=== PATIENT | male | born 1950 | race Caucasian/White ===

== ENCOUNTER 2021-06-12 08:09 | Day surgery (SDC) | payer MEDICARE, SELFPAY ==
[2021-05-17 12:44] VITALS: BMI 33.7
[2021-05-17 15:54] VITALS: BMI 33.7
--- NOTE | 2021-06-11 10:34 | P.CONAN_ITS ---
Documented by User: Bev De Oliveira NP 06/11/21 10:35 HPI - Anesthesia Eval Consult details Narrative: 70yo M for Colonoscopy Eliquis for afib PMFSH Past Medical History Medical History (Updated 05/17/21 @ 15:50 by Lucie Malin, LUIS ENRIQUE) Anxiety Arthritis Elevated cholesterol History of prostate cancer HTN (hypertension) Low back pain PAF (paroxysmal atrial fibrillation) Surgical History Surgical History Hx of colonoscopy Social History Social History Are you a primary manager of care to a significant other at home: No Do you presently have visiting nurse or other home services: No Patient Tobacco Use Status: Former Tobacco user Quit Date: Tobacco use type: Cigarette Use of substances other than those prescribed or required for medical reasons: No Have you been hit, kicked, punched, or otherwise hurt by someone within the past year? If so, by whom?: No Are you DNR?: No Advance Directives: No Advance Directives Information Provided: Yes Advance Directives on File: No Meds Allergies Allergy/AdvReac Type Severity Reaction Status Date / Time ERVIN Inhibitors Allergy Angioedema Verified 05/17/21 15:53 Home Medications Medication Instructions Recorded Confirmed Last Taken Type alprazolam 0.5 mg 0.5 mg PO BID 05/17/21 05/17/21 Unknown History tablet apixaban 5 mg 5 mg PO BID 05/17/21 05/17/21 06/08/21 History tablet (Eliquis) cholecalciferol 50 mcg PO DAILY 05/17/21 05/17/21 Unknown History (vitamin D3) 50 mcg (2,000 unit) capsule (Vitamin D3) fenofibrate 145 mg PO DAILY 05/17/21 05/17/21 Unknown History nanocrystallized 145 mg tablet (Tricor) fluticasone 1 spray 05/17/21 05/17/21 Unknown History propionate 50 INTRANASAL DAILY mcg/actuation nasal spray,suspension hydrochlorothiazi 12.5 mg PO DAILY 05/17/21 05/17/21 Unknown History de 12.5 mg capsule liraglutide 3 mg SUBCUT 05/17/21 05/17/21 Unknown History (weight loss) 3 DAILY mg/0.5 mL (18 mg/3 mL) subcut pen injector (Saxenda) losartan 50 mg 50 mg PO DAILY 05/17/21 05/17/21 Unknown History tablet omega-3 fatty 1,000 mg PO 05/17/21 05/17/21 Unknown History acids DAILY oxazepam 10 mg 10 mg PO TID PRN 05/17/21 05/17/21 Unknown History capsule sotalol 80 mg 80 mg PO DAILY 05/17/21 05/17/21 Unknown History tablet vitamins cap PO 05/17/21 Unknown History A,C,M-pyra-uiutjq 14,320 unit-226 mg-200 unit capsule (PreserVision AREDS) Exam Exam Date and Time: June 11, 2021 1034 Height,Weight and Vital Signs: Height 5 ft 10 in Weight 106.594 kg Assessment and Plan Assessment Anesthesia Assessment: Chart Reviewed Documented by User: Griselda August MD 06/12/21 09:06 [facility] Past Medical History Medical History (Updated 05/17/21 @ 15:50 by Lucie Malin RN) Anxiety Arthritis Elevated cholesterol History of prostate cancer HTN (hypertension) Low back pain PAF (paroxysmal atrial fibrillation) Functional capacity: independent ambulation Family History Family history of problems with anesthesia: No Surgical History Surgical History Hx of colonoscopy History of Problems with Anesthesia: No Social History Social History Are you a primary manager of care to a significant other at home: No Do you presently have visiting nurse or other home services: No Patient Tobacco Use Status: Former Tobacco user Quit Date: Tobacco use type: Cigarette Use of substances other than those prescribed or required for medical reasons: No Have you been hit, kicked, punched, or otherwise hurt by someone within the past year? If so, by whom?: No Are you DNR?: No Advance Directives: No Advance Directives Information Provided: Yes Advance Directives on File: No Meds Allergies Allergy/AdvReac Type Severity Reaction Status Date / Time ERVIN Inhibitors Allergy Angioedema Verified 05/17/21 15:53 Home Medications Medication Instructions Recorded Confirmed Last Taken Type alprazolam 0.5 mg 0.5 mg PO BID 05/17/21 05/17/21 Unknown History tablet apixaban 5 mg 5 mg PO BID 05/17/21 05/17/21 06/08/21 History tablet (Eliquis) cholecalciferol 50 mcg PO DAILY 05/17/21 05/17/21 Unknown History (vitamin D3) 50 mcg (2,000 unit) capsule (Vitamin D3) fenofibrate 145 mg PO DAILY 05/17/21 05/17/21 Unknown History nanocrystallized 145 mg tablet (Tricor) fluticasone 1 spray 05/17/21 05/17/21 Unknown History propionate 50 INTRANASAL DAILY mcg/actuation nasal spray,suspension hydrochlorothiazi 12.5 mg PO DAILY 05/17/21 05/17/21 Unknown History de 12.5 mg capsule liraglutide 3 mg SUBCUT 05/17/21 05/17/21 Unknown History (weight loss) 3 DAILY mg/0.5 mL (18 mg/3 mL) subcut pen injector (Saxenda) losartan 50 mg 50 mg PO DAILY 05/17/21 05/17/21 Unknown History tablet omega-3 fatty 1,000 mg PO 05/17/21 05/17/21 Unknown History acids DAILY oxazepam 10 mg 10 mg PO TID PRN 05/17/21 05/17/21 Unknown History capsule sotalol 80 mg 80 mg PO DAILY 05/17/21 05/17/21 Unknown History tablet vitamins cap PO 05/17/21 Unknown History A,C,P-pzhx-unnmux 14,320 unit-226 mg-200 unit capsule (PreserVision AREDS) Exam Airway Mallampati Class: III TM Dist: >3cm Denture: Upper Heart: RRR Lungs: CTA Assessment and Plan Final Anesthetic Review Family History of Problems with Anesthesia: No History of Problems with Anesthesia: No NPO: Yes ASA Class: II Final Preanesthetic Review: No Changes in Pt Med Stat, Meds/Allgs Chart Reviewed, Consent Obtained/Reviewed and Anes Risks/Benef Reviewed Patient Risk: Low Procedure Risk: Low Anesthetic Plan Anesthetic Plan: MAC: Disposition: Standard PACU
--- NOTE | 2021-06-11 10:34 | HO.ANESPROP2 ---
Documented by User: Bev De Oliveira NP 06/11/21 10:35 HPI - Anesthesia Eval Consult details Narrative: 70yo M for Colonoscopy Eliquis for afib PMFSH Past Medical History Medical History (Updated 05/17/21 @ 15:50 by Lucie Malin, LUIS ENRIQUE) Anxiety Arthritis Elevated cholesterol History of prostate cancer HTN (hypertension) Low back pain PAF (paroxysmal atrial fibrillation) Surgical History Surgical History Hx of colonoscopy Social History Social History Are you a primary managed care nurse to a significant other at home: No Do you presently have visiting nurse or other home services: No Patient Tobacco Use Status: Former Tobacco user Quit Date: Tobacco use type: Cigarette Use of substances other than those prescribed or required for medical reasons: No Have you been hit, kicked, punched, or otherwise hurt by someone within the past year? If so, by whom?: No Are you DNR?: No Advance Directives: No Advance Directives Information Provided: Yes Advance Directives on File: No Meds Allergies Allergy/AdvReac Type Severity Reaction Status Date / Time ERVIN Inhibitors Allergy Angioedema Verified 05/17/21 15:53 Home Medications Medication Instructions Recorded Confirmed Last Taken Type alprazolam 0.5 mg tablet 0.5 mg PO BID 05/17/21 05/17/21 Unknown History apixaban 5 mg tablet (Eliquis) 5 mg PO BID 05/17/21 05/17/21 06/08/21 History cholecalciferol (vitamin D3) 50 50 mcg PO DAILY 05/17/21 05/17/21 Unknown History mcg (2,000 unit) capsule (Vitamin D3) fenofibrate nanocrystallized 145 145 mg PO DAILY 05/17/21 05/17/21 Unknown History mg tablet (Tricor) fluticasone propionate 50 1 spray INTRANASAL DAILY 05/17/21 05/17/21 Unknown History mcg/actuation nasal spray,suspension hydrochlorothiazide 12.5 mg capsule 12.5 mg PO DAILY 05/17/21 05/17/21 Unknown History liraglutide (weight loss) 3 mg/0.5 3 mg SUBCUT DAILY 05/17/21 05/17/21 Unknown History mL (18 mg/3 mL) subcut pen injector (Saxenda) losartan 50 mg tablet 50 mg PO DAILY 05/17/21 05/17/21 Unknown History omega-3 fatty acids 1,000 mg PO DAILY 05/17/21 05/17/21 Unknown History oxazepam 10 mg capsule 10 mg PO TID PRN 05/17/21 05/17/21 Unknown History sotalol 80 mg tablet 80 mg PO DAILY 05/17/21 05/17/21 Unknown History vitamins A,C,M-zbma-zvhfbg 14,320 cap PO 05/17/21 Unknown History unit-226 mg-200 unit capsule (PreserVision AREDS) Exam Exam Date and Time: June 11, 2021 1034 Height,Weight and Vital Signs: Height 5 ft 10 in Weight 106.594 kg Assessment and Plan Assessment Anesthesia Assessment: Chart Reviewed Documented by User: Griselda August MD 06/12/21 09:06 [facility] Past Medical History Medical History (Updated 05/17/21 @ 15:50 by Lucie Malin RN) Anxiety Arthritis Elevated cholesterol History of prostate cancer HTN (hypertension) Low back pain PAF (paroxysmal atrial fibrillation) Functional capacity: independent ambulation Family History Family history of problems with anesthesia: No Surgical History Surgical History Hx of colonoscopy History of Problems with Anesthesia: No Social History Social History Are you a primary managed care nurse to a significant other at home: No Do you presently have visiting nurse or other home services: No Patient Tobacco Use Status: Former Tobacco user Quit Date: Tobacco use type: Cigarette Use of substances other than those prescribed or required for medical reasons: No Have you been hit, kicked, punched, or otherwise hurt by someone within the past year? If so, by whom?: No Are you DNR?: No Advance Directives: No Advance Directives Information Provided: Yes Advance Directives on File: No Meds Allergies Allergy/AdvReac Type Severity Reaction Status Date / Time ERVIN Inhibitors Allergy Angioedema Verified 05/17/21 15:53 Home Medications Medication Instructions Recorded Confirmed Last Taken Type alprazolam 0.5 mg tablet 0.5 mg PO BID 05/17/21 05/17/21 Unknown History apixaban 5 mg tablet (Eliquis) 5 mg PO BID 05/17/21 05/17/21 06/08/21 History cholecalciferol (vitamin D3) 50 50 mcg PO DAILY 05/17/21 05/17/21 Unknown History mcg (2,000 unit) capsule (Vitamin D3) fenofibrate nanocrystallized 145 145 mg PO DAILY 05/17/21 05/17/21 Unknown History mg tablet (Tricor) fluticasone propionate 50 1 spray INTRANASAL DAILY 05/17/21 05/17/21 Unknown History mcg/actuation nasal spray,suspension hydrochlorothiazide 12.5 mg capsule 12.5 mg PO DAILY 05/17/21 05/17/21 Unknown History liraglutide (weight loss) 3 mg/0.5 3 mg SUBCUT DAILY 05/17/21 05/17/21 Unknown History mL (18 mg/3 mL) subcut pen injector (Saxenda) losartan 50 mg tablet 50 mg PO DAILY 05/17/21 05/17/21 Unknown History omega-3 fatty acids 1,000 mg PO DAILY 05/17/21 05/17/21 Unknown History oxazepam 10 mg capsule 10 mg PO TID PRN 05/17/21 05/17/21 Unknown History sotalol 80 mg tablet 80 mg PO DAILY 05/17/21 05/17/21 Unknown History vitamins A,C,R-llbq-wprgxg 14,320 cap PO 05/17/21 Unknown History unit-226 mg-200 unit capsule (PreserVision AREDS) Exam Airway Mallampati Class: III TM Dist: >3cm Denture: Upper Heart: RRR Lungs: CTA Assessment and Plan Final Anesthetic Review Family History of Problems with Anesthesia: No History of Problems with Anesthesia: No NPO: Yes ASA Class: II Final Preanesthetic Review: No Changes in Pt Med Stat, Meds/Allgs Chart Reviewed, Consent Obtained/Reviewed and Anes Risks/Benef Reviewed Patient Risk: Low Procedure Risk: Low Anesthetic Plan Anesthetic Plan: MAC: Disposition: Standard PACU
[2021-06-12 08:34] VITALS: BP 149/68; PULSE 51; RESP 18; TEMP 36.7; O2SAT 94
[2021-06-12] MEDS: Lactated Ringers 1,000 ML 100 ML IVCONT (08:35)
--- NOTE | 2021-06-12 08:56 | MHC.SHP ---
Pre-Procedural Eval Section A Date of Service: 06/12/21 Section B Chief Complaint: screening Details of Present Illness: see h & p no changes Relevant Family History (Specify if Yes): No Relevant Social History: None Present Medications: see Short Stay Collaborative assessment Medical History: No relevant PMH History of Previous Operations: No relevant previous surgery Allergies: Allergies Allergy/AdvReac Type Severity Reaction Status Date / Time ERVIN Inhibitors Allergy Angioedema Verified 05/17/21 15:53 Review of Systems Sugical H&P ROS: Negative: Constitution, Cardiovascular, Respiratory, Neurological, Psychiatric, Hem-Onc, Allergic/Immunologic, Gastrointestinal, Genitourinary, Musculoskeletal, Integumentary, Endocrine and Eyes/Ears/Nose/Throat Exam Surgical H&P Exam: Normal: HEENT, Normal: Heart, Normal: Lungs, Normal: Extremities, Normal: Abdomen, Normal: Skin and Normal: Neurological Plan Diagnosis/Plan: Unchanged I have reviewed the history and physical and performed a pertinent physical examination on my patient. No changes have occurred unless specified.
--- NOTE | 2021-06-12 09:33 | P.BOP_ITS ---
Brief Operative Note Date of Service: 06/12/21 Pre-op diagnosis: screening Post-op diagnosis: same (colon polyps) Procedure: colonoscopy Surgeon: Stoney Garcia Anesthesia: MAC Was an Clinical Research Nurse Coordinator used for this Procedure?: No Estimated blood loss (mL): 2 Pathology: other (polyps x 4)
[2021-06-12 09:34] VITALS: BP 117/65; PULSE 49; RESP 16; TEMP 36.3; O2SAT 96
[2021-06-12 09:50] VITALS: BP 111/64; PULSE 45; RESP 18; TEMP 36.2; O2SAT 98
--- NOTE | 2021-06-12 10:25 | OP_ITS ---
SURGEON: Stoney Garcia MD INDICATIONS: Colon cancer screening and prior history of adenomatous colon polyps. PREOPERATIVE DIAGNOSIS: POSTOPERATIVE DIAGNOSIS: PROCEDURE PERFORMED: ESTIMATED BLOOD LOSS: COMPLICATIONS: ANESTHESIA: ASSISTANTS: SPECIMENS: PROCEDURE: Colonoscopy to the terminal ileum with snare polypectomy. MEDICATIONS: Monitored anesthesia care. DESCRIPTION OF PROCEDURE: History and physical performed. The risks and benefits of the procedure were explained to the patient. Informed consent was obtained. The patient was placed in left lateral decubitus position. A digital rectal exam was performed and was found to be normal. The Olympus pediatric video colonoscope was introduced into the rectum and advanced to the cecum without difficulty. The cecum was identified by transillumination, palpation, and identification of ileocecal valve. Examination was performed. The scope was removed. He tolerated the procedure well and returned to recovery area in stable condition. FINDINGS: The terminal ileum was examined and appeared normal. The visualized colonic mucosa was normal. There was some liquid stool coating the mucosa in the sigmoid and right colon. There was extensive sigmoid diverticulosis with scattered diverticula throughout the remainder of the colon. Total of 4 polyps were identified and removed with a snare, all measured 5 to 10 mm. These were located at 90 cm x 2, 80 cm x 1, and 1 at 55 cm, all recovered via suction. No other polyps were identified. Retroflexed examination showed some small internal hemorrhoids. There were some telangiectasias in the rectum consistent with his prior history of radiation therapy for prostate cancer. IMPRESSION: 1. Colon polyps. 2. Diverticulosis. RECOMMENDATION: Follow up biopsy results. MD AMARI Peters/ANTON[facility]ETAL / [id number]
--- NOTE | 2021-06-12 10:26 | HO.POSTANES ---
Post Anesthesia Evaluation Post Anesthesia Evaluation Vital Signs: Vital Signs Temp Pulse Resp BP Pulse Ox 06/12/21 09:50 97.1 F 45 L 18 111/64 98 06/12/21 09:34 97.4 F 49 L 16 117/65 96 06/12/21 08:34 98.1 F 51 18 149/68 H 94 Anesthesia: Monitored Mental Status: Awake Pain Control: Satisfactory Nausea/Vomiting: None Hydration: Adequate Anesthesia-Related Issues: No Anes. Related Issues
== END 2021-06-12 10:12 | disposition home or self-care (01) ==
PROVIDERS: PCP Hospitalist; Visit Provider Internal Medicine Gastroenterology
PROC: 0DJD8ZZ Inspection of Lower Intestinal Tract, Via Natural or Artificial Opening Endoscopic (ICD-10-PCS; CPT 45378; principal; 2021-06-12 09:10)
DX: Z12.11 Encounter for screening for malignant neoplasm of colon (principal); Z86.010 Personal history of colon polyps; D12.3 Benign neoplasm of transverse colon; D12.4 Benign neoplasm of descending colon; K63.5 Polyp of colon; K57.30 Diverticulosis of large intestine without perforation or abscess without bleeding; K64.8 Other hemorrhoids; K62.7 Radiation proctitis; Z85.46 Personal history of malignant neoplasm of prostate; Y84.2 Radiological procedure and radiotherapy as the cause of abnormal reaction of the patient, or of later complication, without mention of misadventure at the time of the procedure; Z87.891 Personal history of nicotine dependence; I10 Essential (primary) hypertension; E78.00 Pure hypercholesterolemia, unspecified; I48.0 Paroxysmal atrial fibrillation; Z79.01 Long term (current) use of anticoagulants; Z79.899 Other long term (current) drug therapy
CPT/HCPCS: 45385; 88305